=== PATIENT | female | born 1930 | race Caucasian/White ===

== ENCOUNTER → 2016-06-28 | Day surgery (SDC) | payer MEDICARE ==
[~2016-06-28] VITALS: Ht 165.1 cm; Wt 59.4 kg
[~2016-06-28] MED LIST: BUPIVACAINE-EPI 0.5%-1:200000 50 ML VIAL. ONE; CALC500T27 PO; CHOL20002 PO; CITA10TA4 PO; CLINDAMYCIN 600MG PREMIX 50 ML IV ONE; EPHEDRINE PF IN SALINE 50 MG/5 ML DISP.SYRIN. IV ONE; FENTANYL PF 100 MCG/2 ML VIAL. IV PRN; GELATIN SPONGE SIZE 12-7MM SPONGE. ONE; HYDR-971 PO; HYDROMORPHONE 2 MG/ML VIAL. IV PRN; IPRA3AMP NEB; IV RINGERS,LACTATED 1000ML 1,000 ML IV SCH; LIDOCAINE 1% 1 ML SYRINGE. ID PRN; LIDOCAINE 1%/EPI 1:100,000 20 ML VIAL. ONE; LIDOCAINE 2% 100 MG/5 ML DISP.SYRIN. ONE; LORAZEPAM TP; MELA3TAB PO; MORPHINE SULFATE 2 MG/ML DISP.SYRIN. IV PRN; MULT-246 PO; ONDANSETRON PF 4 MG/2 ML VIAL. IV PRN; PROCHLORPERAZINE 10 MG/2 ML VIAL. IV PRN; PROPOFOL 20 ML IV ONE; TRAZ50TA15 PO
--- NOTE | 2016-06-28 14:40 | PDOC ---
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
[2016-06-28 15:40] VITALS: BP 131/63
--- NOTE | 2016-06-28 21:06 | OP ---
DATE OF SURGERY: 06/28/2016 TIME: 1430 p.m. Operating physician: Osman Rain DMD, MD. 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 PROCEDURES PERFORMED: Surgical extraction of tooth #13. Brief History: The patient is an 86-year-old female with past medical history that is significant for dementia, hypertension, 2 strokes, GERD, osteoarthritis, aphagia, insomnia, history of falling with hip fracture, major depressive disorder, anxiety disorder and impulse disorder. She was referred to my clinic for extraction of tooth #13. Her daughter is her power of real estate attorney and is present at both the consult and after procedure. Risks and alternatives were explained to the daughter and benefits of surgery were explained to daughter and the tooth would be extracted in the OR due to compliance. The patient has severe compliance ____ consultation in my clinic. She was screaming, yelling ____ and attempting to leave the clinic involuntarily. After she was soothed by myself and assistants and her daughter, she was made very comfortable and would pick at her tooth constantly, specifically the tooth #13 ____ crown had fallen off and was severely decayed. She would hold my hand and talk to me. She responds better to males than females. Given her unpredictably and amidst difficulty to control the patient ____ local procedure was elected to provide this care in the operating room. BLOOD LOSS: Less than 10 mL. COMPLICATIONS: None noted at the time of surgery. SPECIMENS: None were sent to the OR. IV Fluids: Less than 400 mL. OPERATIVE DESCRIPTION: After the history and physical was updated in the preoperative holding area, the patient was transported by the operating team to the operating suite, placed in the supine position. She was left in her initial bed and she was padded with blankets in all pressure points. Anesthesia was induced by the anesthesiology with administration of propofol, a small amount to initiate MAC anesthetic. This was successfully performed and local anesthesia was performed with 6 mL of 0.5% Marcaine, 1:200,000 epinephrine. After the area was localized, full thickness mucoperiosteal flap was reflected. Forceps were utilized to remove tooth and luxate, elevate and extract the tooth and minor local alveoloplasty was performed and the surgical extraction of tooth #13. Adjacent teeth had no injury to them. The bone was curetted, lavaged and suctioned. Gelfoam was placed in the extraction site and two times 3-0 Chromic gut sutures were placed for hemostasis. Throat pack was then removed and the area was ____. The bite block was removed at this time. The patient was returned to the care of anesthesia where she was allowed to recover without complication and transported to the PACU in a stable condition. OSMAN RAIN DMD DR: Joe JOB#: [id number] / [id number]
== END ==
LOC: SURG 11:59
PROVIDERS: ATTEND Dentist Oral and Maxillofacial Surgery
DX: K02.9 Dental caries, unspecified (principal); Z86.73 Personal history of transient ischemic attack (TIA), and cerebral infarction without residual deficits; F03.90 Unspecified dementia, unspecified severity, without behavioral disturbance, psychotic disturbance, mood disturbance, and anxiety; I10 Essential (primary) hypertension; K21.9 Gastro-esophageal reflux disease without esophagitis; M19.90 Unspecified osteoarthritis, unspecified site; Z87.81 Personal history of (healed) traumatic fracture; F32.9 Major depressive disorder, single episode, unspecified
CPT/HCPCS: 41899; J0780; J2704; J3490; J3010